=== PATIENT | female | born 1960 | race Two or more races ===

== ENCOUNTER 2016-10-23 11:04 | Emergency (ER) | payer MEDICAID ==
[~2016-10-23] VITALS: Ht 160 cm; Wt 65.8 kg
[2016-10-23 13:05] LABS: Basophils # (auto) 0 uL; Basophils % (auto) 0.1 % (0.0-2.0); Eosinophils # (auto) 0 uL; Eosinophils % (auto) 0.3 % (0.0-7.0); Hematocrit 39.5 % (36.0-46.0); Hemoglobin 12.9 g/dL (12.2-16.2); Lymphocytes # (auto) 2.1 uL; Lymphocytes % (auto) 41.3 % (10.0-50.0); Mean Corpuscular Hemoglobin 27.1 pg (28.0-32.0); Mean Corpuscular Hgb Conc. 32.7 g/dL (32.0-36.0); Monocytes # (auto) 0.4 uL; Monocytes % (auto) 8.3 % (0.0-12.0); Neutrophils # (auto) 2.5 uL; Platelet Count (auto) 248 10^3/uL (140-450); Red Cell Distribution Width 14.5 % (11.6-16.0)
[2016-10-23 13:16] LABS: Albumin 3.5 g/dL (3.4-5.0); BUN/Creatinine Ratio 20.6; Calcium 8.5 mg/dL (8.5-10.1); Magnesium 2.6 mg/dL (1.6-2.6); Potassium 3.6 mmol/L (3.5-5.1)
[2016-10-23 13:26] LABS: Bilirubin, Total 0.4 mg/dL (0.2-1.0); Total Protein 7.2 g/dL (6.4-8.2)
[2016-10-23 15:51] LABS: Urine RBC None Seen /hpf (0 - 4)
[2016-10-23] MEDS ORDERED: MECLIZINE HCL 25 MG TAB PO ONE (16:00)
[2016-10-23 16:06] VITALS: BP 157/77
[2016-10-23 16:10] LABS: Urine Bilirubin Negative (Negative); Urine Blood Negative /uL (Negative); Urine Color Yellow (Yellow); Urine Glucose Normal (Normal); Urine Ketone Negative (Negative); Urine Mucus MANY (None Seen); Urine Nitrite Negative (Negative); Urine Squamous Epithelial Cell FEW /hpf (<5); Urine Urobilinogen Normal (Negative)
== END 2016-10-23 17:59 | disposition home or self-care (01) ==
LOC: ER 11:07
DX: J06.9 Acute upper respiratory infection, unspecified (principal); H83.93 Unspecified disease of inner ear, bilateral; R42 Dizziness and giddiness; B69.9 Cysticercosis, unspecified
CPT/HCPCS: 36415; 70450; 71020; 80053; 81001; 82962; 83735; 84443; 84484; 85025; 93005; 99285; J7030; J8597

== ENCOUNTER 2017-05-10 10:23 | Emergency (ER) | payer MEDICAID, OTHER ==
[~2017-05-10] VITALS: Ht 157.5 cm; Wt 68.0 kg
[2017-05-10 10:35] VITALS: BP 122/52
== END 2017-05-10 12:20 | disposition home or self-care (01) ==
LOC: ER 10:23
DX: S39.012A Strain of muscle, fascia and tendon of lower back, initial encounter (principal); Z98.51 Tubal ligation status; W01.0XXA Fall on same level from slipping, tripping and stumbling without subsequent striking against object, initial encounter; Y93.89 Activity, other specified; Y99.8 Other external cause status; Y92.69 Other specified industrial and construction area as the place of occurrence of the external cause

== ENCOUNTER 2017-05-12 21:19 | Emergency (ER) | payer OTHER ==
[~2017-05-12] VITALS: Ht 157.5 cm; Wt 68.0 kg
[2017-05-12 22:18] LABS: Urine RBC None Seen /hpf (0 - 4)
[2017-05-12 22:36] LABS: Basophils # (auto) 0 uL; Basophils % (auto) 0.4 % (0.0-2.0); CONDITION Y; Eosinophils # (auto) 0.1 uL; Hematocrit 38.8 % (36.0-46.0); Hemoglobin 13.1 g/dL (12.2-16.2); Lymphocytes # (auto) 2.5 uL; Lymphocytes % (auto) 30.6 % (10.0-50.0); Mean Corpuscular Hemoglobin 28.3 pg (28.0-32.0); Mean Corpuscular Hgb Conc. 33.8 g/dL (32.0-36.0); Mean Corpuscular Volume 83.5 fL (80.0-100.0); Mean Platelet Volume 9.1 fL (7.4-10.4); Monocytes # (auto) 0.5 uL; Platelet Count (auto) 251 10^3/uL (140-450); Red Cell Distribution Width 14.6 % (11.6-16.0)
[2017-05-12 22:42] LABS: Urine Bilirubin Negative (Negative); Urine Blood Negative /uL (Negative); Urine Color Yellow (Yellow); Urine Glucose Normal (Normal); Urine Ketone Negative (Negative); Urine Mucus FEW (None Seen); Urine Nitrite Negative (Negative); Urine Squamous Epithelial Cell FEW /hpf (<5); Urine Urobilinogen Normal (Negative)
[2017-05-12 22:49] LABS: INR 0.92 (0.9-1.15); Partial Thromboplastin Time 25.3 sec (22.64-33.71)
[2017-05-12 22:59] LABS: Albumin 3.4 g/dL (3.4-5.0); BUN/Creatinine Ratio 23.8; Bilirubin, Total 0.3 mg/dL (0.2-1.0); Calcium 8.4 mg/dL (8.5-10.1); Potassium 3.8 mmol/L (3.5-5.1); Total Protein 7.2 g/dL (6.4-8.2)
[2017-05-13] MEDS ORDERED: ONDANSETRON ODT 4 MG TAB PO ONE (00:15)
[2017-05-13] MEDS ORDERED: KETOROLAC TROMETH 60MG/2ML VIAL IM ONE (00:15)
[2017-05-13] MEDS ORDERED: DEXAMETHASONE SOD PHOS 10MG/1ML VIAL INJ IM ONE (00:15)
[2017-05-13 03:00] VITALS: BP 125/70
== END 2017-05-13 03:31 | disposition home or self-care (01) ==
LOC: ER 21:24
DX: S33.5XXA Sprain of ligaments of lumbar spine, initial encounter (principal); Z98.51 Tubal ligation status; W18.39XA Other fall on same level, initial encounter; Y93.89 Activity, other specified; Y99.0 Civilian activity done for income or pay; Y92.89 Other specified places as the place of occurrence of the external cause
CPT/HCPCS: 36415; 72131; 80053; 81001; 85025; 85610; 85730; 93005; 96372; 99285; J1100; J1885; Q0162

== ENCOUNTER 2018-07-13 19:36 | Emergency (ER) | payer MEDICAID ==
[~2018-07-13] VITALS: Ht 157.5 cm; Wt 70.3 kg
[2018-07-13 20:08] VITALS: BP 140/86
[2018-07-13] MEDS ORDERED: LIDOCAINE 1% HCL (LOCAL ANESTH.) INJ 20ML MDV IJ ONE (22:15)
[2018-07-13] MEDS ORDERED: TRIAMCINOLONE 40MG/ML 1ML VIAL IX ONE (22:15)
[2018-07-13] MEDS ORDERED: KETOROLAC TROMETH 60MG/2ML VIAL IM ONE (22:30)
== END 2018-07-13 22:52 | disposition home or self-care (01) ==
LOC: ER 19:36
DX: S86.911A Strain of unspecified muscle(s) and tendon(s) at lower leg level, right leg, initial encounter (principal); Z98.51 Tubal ligation status; X58.XXXA Exposure to other specified factors, initial encounter; Y93.89 Activity, other specified; Y92.89 Other specified places as the place of occurrence of the external cause; Y99.8 Other external cause status
CPT/HCPCS: 73562; 96372; 99284; J1885

== ENCOUNTER 2021-06-10 05:55 | Emergency (ER) | payer MEDICAID ==
[~2021-06-10] VITALS: Ht 157.5 cm; Wt 70.3 kg
[2021-06-10 07:14] LABS: Basophils # (auto) 0 10 ^3/uL (0-0.2); Basophils % (auto) 0.3 % (0.0-2.0); Eosinophils # (auto) 0.1 10 ^3/uL (0-0.8); Eosinophils % (auto) 0.7 % (0.0-7.0); Hematocrit 38.4 % (36.0-46.0); Hemoglobin 13.2 g/dL (12.2-16.2); Lymphocytes % (auto) 19.7 % (10.0-50.0); Mean Corpuscular Hemoglobin 28.4 pg (28.0-32.0); Mean Corpuscular Hgb Conc. 34.2 g/dL (32.0-36.0); Monocytes # (auto) 0.6 10 ^3/uL (0-1.3); Monocytes % (auto) 5.7 % (0.0-12.0); Neutrophils # (auto) 7.5 10 ^3/uL (1.6-8.6); Neutrophils % (auto) 73.6 % (37.0-80.0); Nucleated Red Blood Cells % 0.1 %; Red Blood Cells 4.63 10^6/uL (4.0-5.20); Red Cell Distribution Width 14.6 % (11.8-14.3); White Blood Cell 10.2 10^3/uL (4.4-10.8)
[2021-06-10 07:32] LABS: Urine WBC None Seen /hpf (0 - 5)
[2021-06-10 07:48] LABS: Albumin 3.1 g/dL (3.4-5.0); Amylase 61 U/L (25-115); Anion Gap 5 (5-15); Blood Urea Nitrogen 12 mg/dL (7-18); Calcium 8.8 mg/dL (8.5-10.1); Carbon Dioxide 25 mmol/L (21-32); Chloride 111 mmol/L (98-107); Glucose 118 mg/dL (74-106); Lipase 73 U/L (73-393); Potassium 4.1 mmol/L (3.5-5.1); Sodium 141 mmol/L (136-145)
[2021-06-10 07:50] LABS: Alanine Aminotransferase 28 U/L (13-56); Aspartate Aminotransferase 17 U/L (15-37); BUN/Creatinine Ratio 17.9; GFR African American 115 mL/min; GFR Non-African American 95 mL/min
[2021-06-10 07:52] LABS: Urine Bacteria NONE SEEN /hpf (None Seen); Urine Blood Negative /uL (Negative); Urine Mucus FEW (None Seen); Urine Specific Gravity 1.012 (1.001-1.035)
[2021-06-10 07:56] LABS: Alkaline Phosphatase 102 U/L (45-117); Bilirubin, Total 0.3 mg/dL (0.2-1.0); Total Protein 7.2 g/dL (6.4-8.2)
[2021-06-10] MEDS ORDERED: PANTOPRAZOLE 40 MG TAB PO ONE (08:45)
[2021-06-10] MEDS ORDERED: SODIUM CHLORIDE 0.9% 1,000 ML IV ONE (08:45)
[2021-06-10] MEDS ORDERED: METOCLOPRAMIDE HCL 5MG/ml INJ 2ml VIAL IV ONE (08:45)
[2021-06-10] MEDS ORDERED: DONNATAL 5ml ORAL Elix (BELLADONNA ALK-PHENOBARB) PO ONE (08:45)
[2021-06-10] MEDS ORDERED: ALUM & MAG HYDROX-SIMETH LIQ(MAALOX) 30 ML PO ONE (08:45)
[2021-06-10] MEDS ORDERED: MORPHINE SULFATE 4 MG/ML SYR/VIAL IV ONE (08:45)
[2021-06-10 18:20] VITALS: BP 145/70
== END 2021-06-10 18:36 | disposition home or self-care (01) ==
LOC: ER 05:57
DX: K29.70 Gastritis, unspecified, without bleeding (principal)
CPT/HCPCS: 36415; 76705; 80053; 81001; 82150; 83690; 84484; 85025; 93005; 96361; 96374; 96375; 99285; J2270; J2765; J7030

== ENCOUNTER 2021-06-23 11:49 | Emergency (ER) | payer MEDICAID ==
[~2021-06-23] VITALS: Ht 157.5 cm; Wt 70.8 kg
[2021-06-23] MEDS ORDERED: KETOROLAC TROMETH 60MG/2ML VIAL IM ONE (14:45)
[2021-06-23 15:19] VITALS: BP 113/59
== END 2021-06-23 16:08 | disposition home or self-care (01) ==
LOC: ER 11:49
DX: S39.012A Strain of muscle, fascia and tendon of lower back, initial encounter (principal); M54.42 Lumbago with sciatica, left side; X58.XXXA Exposure to other specified factors, initial encounter; Y93.89 Activity, other specified; Y92.89 Other specified places as the place of occurrence of the external cause; Y99.8 Other external cause status
CPT/HCPCS: 72100; 93005; 96372; 99283; J1885

== ENCOUNTER 2021-06-23 21:08 | Emergency (ER) | payer MEDICAID ==
[~2021-06-23] VITALS: Ht 157.5 cm; Wt 70.8 kg
[2021-06-24] MEDS ORDERED: NAPROXEN 500 MG TAB PO ONE (03:15)
[2021-06-24] MEDS ORDERED: BACLOFEN 10 MG TAB PO ONE (03:15)
[2021-06-24] MEDS ORDERED: methylPREDNISolone SOD SUCC 125 MG/2 ML VL IM ONE (03:15)
[2021-06-24] MEDS ORDERED: HYDROcodone-ACET 5/325MG TAB PO ONE ×2 (03:15→04:00)
[2021-06-24 03:34] VITALS: BP 118/83
[2021-06-24] MEDS ORDERED: IBUPROFEN 800 MG TAB PO ONE (04:00)
== END 2021-06-24 05:05 | disposition home or self-care (01) ==
LOC: ER 21:08
DX: M54.16 Radiculopathy, lumbar region (principal); M54.42 Lumbago with sciatica, left side; G89.29 Other chronic pain; Z98.51 Tubal ligation status
CPT/HCPCS: 96372; 99284; J2930